=== PATIENT | female | born 1930 | race Caucasian/White ===

== ENCOUNTER 2017-06-25 10:10 | Day surgery (SDC) | payer MEDICARE ==
[~2017-06-25] VITALS: Ht 162.6 cm; Wt 109.1 kg
--- NOTE | ~2017-06-25 | OP ---
PATIENT NAME: KAMALJIT CORTEZ MEDICAL RECORD: [id number] :31 LOCATION:D.OPS ADMISSION DATE: SURGEON: ALYSHA SHERMAN DO DATE OF OPERATION: 06/25/2017 PROCEDURE: Colonoscopy to the hepatic flexure. INDICATION FOR PROCEDURE: Hematochezia. SCOPE: Olympus video pediatric colonoscope. MEDICATIONS: Propofol 300 mg IV per anesthesia. ESTIMATED BLOOD LOSS: None. COMPLICATIONS: None. FINDINGS: Informed consent was given. The patient was made comfortable with the above medication. After reaching an adequate level of sedation by slow IV push, the patient was placed on her left side. A digital rectal examination was performed and revealed grade IV internal and external hemorrhoids with prolapsing tissue that could not be reduced manually. There was no active bleeding at the time of the examination, but the mucosa was friable. The endoscope was advanced under direct visualization through the rectum to the hepatic flexure. Colonoscopy could not be advanced to the cecum safely due to looping in the left lower quadrant. A significant time was spent trying to advance the colonoscope to the cecum, but due to safety concerns and the fact that this is for hematochezia and the most likely diagnosis is her large hemorrhoids, the procedure was terminated. The endoscope was slowly withdrawn and the mucosa was carefully examined. The prep quality was fair. There were multiple areas of pooling of fluid that could not be suctioned due to stool, which appeared to be released from diverticula. That being said, there were no polyps visualized on today's examination. There was extensive diverticulosis of the entire colon with the most severe findings on the left side of the colon. Retroflexion was performed in the rectum with visualization of prolapsed hemorrhoids. Again, on withdrawal of the endoscope, documentation was taken in the form of photographs, revealing grade IV internal and external hemorrhoids consisting of prolapsed tissue that could not be reduced. The endoscope was completely withdrawn from the patient. The patient tolerated the procedure well and there were no complications. IMPRESSION: 1. Pandiverticulosis. 2. Grade IV internal and external hemorrhoids without active bleeding. 3. Incomplete colonoscopy due to safety concerns. PLAN AND RECOMMENDATIONS: 1. Discharge home when recovery parameters are met. 2. If right side of the colon is a concern for either a mass lesion or a site for bleeding, I would recommend barium enema for further evaluation. I do not feel this is necessary as the patient did have a colonoscopy 5 years ago and has been up-to-date on her screenings. Most likely diagnosis was and is the grade IV hemorrhoids that were visualized on today's examination. 3. Recommend continued symptomatic treatment for the hemorrhoids which have not bled in weeks to months at this time. OPERATIVE REPORT [id number] KAMALJIT CORTEZ 4. If bleeding becomes a continued problem, this will require surgical management due to size and types of hemorrhoids encountered. 5. If the patient does resume Plavix, this will likely contribute to bleeding from the hemorrhoids. 6. No further colonoscopy is indicated. TRANSINT:[id number] Voice Confirmation ID: [id number] DOCUMENT ID: [id number] ALYSHA SHERMAN DO at 1524 CC: [id number] DICTATION DATE: 06/25/17 1156 NURSING PROGRAM MANAGER: 06/25/17 1248 [facility] 06/25/17 [id number] [place] [address]
[2017-06-25] MEDS ORDERED: NORVASC5 MG PO (10:41)
[2017-06-25] MEDS ORDERED: PROAIR HFA8.5 GM INH (10:41)
[2017-06-25] MEDS ORDERED: GABAPENTIN100 MG PO (10:41)
[2017-06-25] MEDS ORDERED: COZAAR100 MG PO (10:42)
[2017-06-25] MEDS ORDERED: HYZAAR 100-25 T1 TAB PO (10:43)
[2017-06-25 10:51] VITALS: BP 148/70; Ht 162.6 cm; Wt 109.1 kg
[2017-06-25 10:59] LABS: BASOPHILS 0.3 % (0-2); EOSINOPHILS 2.2 % (0-7); HEMATOCRIT 40.1 % (36.0-48.0); HEMOGLOBIN 13.5 g/dL (12-16); IMMATURE GRANULOCYTES 0.3 % (0-5); LYMPHOCYTES 14.4 % (15-50); MCH 28.7 pg (26.0-34.0); MCHC 33.7 g/dL (31.0-37.0); MCV 85.3 fL (80.0-100.0); MEAN PLATELET VOLUME 9.8 fL (7.4-10.4); MONOCYTES 7.8 % (2-11); PLATELET COUNT 240 10x3/uL (130-400); RDW 13.9 % (11.5-14.5); WBC 9.3 10x3/uL (4.8-10.8)
[2017-06-25 11:34] LABS: ANION GAP 14.8 mmol/L (8-16); CALCIUM 8.5 mg/dL (8.5-10.1); CARBON DIOXIDE 24.9 mmol/L (21.0-32.0); CREATININE - SERUM 1.2 mg/dL (0.6-1.3); POTASSIUM - SERUM 3.7 mmol/L (3.5-5.1)
[2017-07-16] MEDS ORDERED: PLAVIX75 MG PO (14:01)
[2017-07-16] MEDS ORDERED: PERFOROMIS20 MCG/21 INH (14:01)
== END 2017-06-25 15:25 | disposition home or self-care (01) ==
LOC: D.OPS 10:10
PROVIDERS: Anesthesiology
DX: K57.30 Diverticulosis of large intestine without perforation or abscess without bleeding (principal); K64.3 Fourth degree hemorrhoids; Z01.812 Encounter for preprocedural laboratory examination

== ENCOUNTER 2017-07-17 09:09 | Day surgery (SDC) | payer MEDICARE ==
[~2017-07-17] VITALS: Ht 162.6 cm; Wt 108.9 kg
--- NOTE | ~2017-07-17 | OP ---
PATIENT NAME: KAMALJIT CORTEZ MEDICAL RECORD: [id number] :31 LOCATION:D.OPS ADMISSION DATE: SURGEON: MELANIE COREA MD DATE OF OPERATION: 07/17/2017 PREOPERATIVE DIAGNOSES: 1. Hemorrhoids. 2. Chronic obstructive pulmonary disease. 3. Hypertension. 4. Diabetes mellitus. 5. Transient ischemic attacks. POSTOPERATIVE DIAGNOSES: 1. Hemorrhoids. 2. Chronic obstructive pulmonary disease. 3. Hypertension. 4. Diabetes mellitus. 5. Transient ischemic attacks. PROCEDURE: PPH stapled hemorrhoidectomy. SURGEON: Melanie Corea MD REPORT OF PROCEDURE: The patient was placed in the jackknife prone position and the perianal region was prepped and draped in sterile fashion. An anoscope was inserted and a 360-degree inspection was performed. The patient had a large amount of redundant tissue in the anal region with large internal and external hemorrhoids in all columns along with at least some degree of prolapse. A PPH anoscope was then inserted and sutured down on all 4 sides using interrupted 3-0 Vicryls. A 2-0 Prolene was placed in a pursestring fashion on the distal aspect of the rectum. After this, the PPH stapler was inserted. After we had tightened it down tightly and pulled the pursestring tightly around it, then we inspected the vaginal wall to assure there was no sign of any tethering of the tissue. There did not appear to be any tethering of the tissue in the vaginal wall and at this point, the stapler was fired. A good ring of tissue was removed at this point. We then inspected the staple line. It appeared to be intact with no sign of any active bleeding. The rectum was then irrigated out thoroughly with normal saline. The PPH anoscope was then removed and a piece of Gelfoam dipped in [place] was placed into the rectum. COMPLICATIONS: None. CONDITION: Stable. ANESTHESIA: General endotracheal. BLOOD LOSS: 30 mL. TRANSINT:[id number] Voice Confirmation ID: [id number] DOCUMENT ID: [id number] OPERATIVE REPORT [id number] KAMALJIT CORTEZ MELANIE COREA MD at 0804 CC: LAYSHA SHERMAN DO [id number] DICTATION DATE: 07/17/17 1248 ORNITHOLOGY TEACHER: 07/17/17 1319 [facility] [place] 07/17/17 [facility] [address] [id number]
[~2017-07-17 09:09] MED LIST: COZAAR100 MG PO; GABAPENTIN100 MG PO; HYZAAR 100-25 T1 TAB PO; NORVASC5 MG PO; PERFOROMIS20 MCG/21 INH; PLAVIX75 MG PO; PROAIR HFA8.5 GM INH
[2017-07-17 09:47] LABS: BASOPHILS 0.3 % (0-2); EOSINOPHILS 2.5 % (0-7); HEMATOCRIT 44.9 % (36.0-48.0); HEMOGLOBIN 14.9 g/dL (12-16); IMMATURE GRANULOCYTES 0.4 % (0-5); LYMPHOCYTES 13.9 % (15-50); MCHC 33.2 g/dL (31.0-37.0); MCV 87.4 fL (80.0-100.0); MEAN PLATELET VOLUME 9.7 fL (7.4-10.4); MONOCYTES 7.2 % (2-11); NEUTROPHILS 75.7 % (40-80); PLATELET COUNT 276 10x3/uL (130-400); RBC 5.14 10x6/uL (4.00-5.40); RDW 14.1 % (11.5-14.5); WBC 9.7 10x3/uL (4.8-10.8)
[2017-07-17 10:02] VITALS: Ht 162.6 cm; Wt 108.9 kg
[2017-07-17 10:07] LABS: INR 1.03 (0.85-1.17); PROTIME 13.1 SECONDS (11.6-15.0)
[2017-07-17 10:08] LABS: APTT 30.8 SECONDS (22.8-39.4)
[2017-07-17 10:16] LABS: ANION GAP 15.8 mmol/L (8-16); CALCIUM 9.4 mg/dL (8.5-10.1); CARBON DIOXIDE 25.8 mmol/L (21.0-32.0); CREATININE - SERUM 1.1 mg/dL (0.6-1.3); POTASSIUM - SERUM 4.6 mmol/L (3.5-5.1)
[2017-07-17] MEDS ORDERED: HYDROCODONE-APA1 TAB PO (12:45)
== END 2017-07-17 16:00 | disposition home or self-care (01) ==
LOC: D.OPS 09:09 → D.PAN 11:45 → D.OPS 16:00
PROVIDERS: Anesthesiology
DX: K64.8 Other hemorrhoids (principal); K64.4 Residual hemorrhoidal skin tags; J44.9 Chronic obstructive pulmonary disease, unspecified; I10 Essential (primary) hypertension; E11.9 Type 2 diabetes mellitus without complications; Z86.73 Personal history of transient ischemic attack (TIA), and cerebral infarction without residual deficits; Z01.812 Encounter for preprocedural laboratory examination